=== PATIENT | male | born 1975 | race Caucasian/White ===

== ENCOUNTER 2017-07-15 21:37 | Inpatient (IN) | payer MEDICAID ==
[~2017-07-15] VITALS: Ht 177.8 cm; Wt 67.6 kg
[2017-07-15 21:47] VITALS: Ht 177.8 cm; Wt 67.6 kg
[2017-07-15 22:40] LABS: ALKALINE PHOSPHATASE 213 U/L (46-116); ALT/SGPT 53 U/L (16-63); AST/SGOT 37 U/L (15-37); BILIRUBIN TOTAL 0.55 mg/dL (0.20-1.00); CALCIUM 8.8 mg/dL (8.5-10.1); CARBON DIOXIDE 25.7 mmol/L (21-32); CREATININE SERUM 0.9 mg/dL (0.7-1.3); GFR1 > 60 mL/min; HDL CHOLESTEROL 55 mg/dL (40-60); POTASSIUM SERUM 4.4 mmol/L (3.5-5.1); URIC ACID 2.5 mg/dL (3.5-7.2)
[2017-07-15 22:42] LABS: ALBUMIN 3.1 g/dL (3.4-5.0); CHOLESTEROL 101 mg/dL (<200)
[2017-07-15 22:50] LABS: BASOPHIL % 1.4 % (0-2); PLATELET COUNT 300 x10^3mcL (130-400)
[2017-07-15 22:59] LABS: CHLORIDE SERUM 92 mmol/L (98-107); SODIUM SERUM 128 mmol/L (136-145)
[2017-07-15 23:02] LABS: GLUCOSE SERUM 532 mg/dL (74-106)
[2017-07-16] VITALS (7 sets, daily range): BP systolic 91–118; BP diastolic 57–80
[2017-07-16] MEDS ORDERED: ASPIR LOW81 MG PO (01:12)
[2017-07-16] MEDS ORDERED: ENALAPRIL MALEA20 MG PO (01:13)
[2017-07-16] MEDS ORDERED: LIPI20 PO (01:14)
[2017-07-16] MEDS ORDERED: METFORMIN HCL1000 MG PO (01:14)
[2017-07-16 01:24] LABS: MAGNESIUM 1.8 mg/dL (1.8-2.4)
[2017-07-16 01:35] LABS: FREE T4 1.73 ng/dL (0.76-1.46)
[2017-07-16 01:45] LABS: CHOLESTEROL/HDL RATIO 1.9; FREE THYROXINE INDEX 5.5 ug/dL (1.4-4.5); T4(THYROXINE) 16.3 ug/dL (4.7-13.3)
[2017-07-16 07:11] LABS: PLATELET COUNT 300 x10^3mcL (130-400); RED CELL DISTRIBUTION WIDTH 11.9 % (11.5-14.5)
[2017-07-16 07:35] LABS: CARBON DIOXIDE 22.5 mmol/L (21-32); CHLORIDE SERUM 96 mmol/L (98-107); CREATININE SERUM 0.8 mg/dL (0.7-1.3); GFR1 > 60 mL/min; GLUCOSE SERUM 356 mg/dL (74-106); MAGNESIUM 1.8 mg/dL (1.8-2.4); PHOSPHOROUS 2.6 mg/dL (2.5-4.9); POTASSIUM SERUM 3.8 mmol/L (3.5-5.1); SODIUM SERUM 131 mmol/L (136-145)
[2017-07-16 11:50] LABS: BAND NEUTROPHIL 0 % (0-10); BASOPHIL 0 % (0-2); MONOCYTE 3 % (0-7); SEGMENTED NEUTROPHILS 89 % (37-75)
[2017-07-16 11:51] LABS: PLATELET MORPHOLOGY PLATELETS INCREASED; rbc morphology (normal/abnorm) ABNORMAL (NORMAL)
[2017-07-16 13:49] LABS: T3 TOTAL 1.42 ng/mL
[2017-07-17 06:01] VITALS: BP 96/57
[2017-07-17 06:20] LABS: BASOPHIL % 0.3 % (0-2); PLATELET COUNT 278 x10^3mcL (130-400); RED CELL DISTRIBUTION WIDTH 12.6 % (11.5-14.5)
[2017-07-17 06:34] LABS: CALCIUM 8.1 mg/dL (8.5-10.1); CARBON DIOXIDE 26.3 mmol/L (21-32); CHLORIDE SERUM 103 mmol/L (98-107); CREATININE SERUM 0.6 mg/dL (0.7-1.3); GFR1 > 60 mL/min; GLUCOSE SERUM 179 mg/dL (74-106); MAGNESIUM 1.8 mg/dL (1.8-2.4); PHOSPHOROUS 3.1 mg/dL (2.5-4.9); POTASSIUM SERUM 3.6 mmol/L (3.5-5.1); SODIUM SERUM 138 mmol/L (136-145)
[2017-07-17 08:40] VITALS: BP 110/75
[2017-07-17] MEDS ORDERED: VENTOLIN H0.09 MG/A1 INH (08:52)
[2017-07-17] MEDS ORDERED: NEU100 PO (08:55)
[2017-07-17] MEDS ORDERED: SERTRALINE50 M1 PO (08:55)
[2017-07-17] MEDS ORDERED: COL100 PO (08:56)
[2017-07-17] MEDS ORDERED: BG FS (08:56)
[2017-07-17] MEDS ORDERED: LAC PO (08:57)
[2017-07-17] MEDS ORDERED: [UNRECOGNIZED DRUG - OTHER] MC (08:58)
[2017-07-17] MEDS ORDERED: APAP/HYDROCODON1 T13 PO (09:01)
[2017-07-17] MEDS ORDERED: HUMULIN R100 U/1 M1 SC (11:13)
[2017-07-17] MEDS ORDERED: [UNRECOGNIZED DRUG - OTHER] MC (11:14)
[2017-07-17] MEDS ORDERED: CYCLOBENZAPRINE5 MG PO (11:17)
[2017-07-17 11:54] VITALS: BP 110/75
[2017-07-17 11:56] LABS: microscopic required? NO
[2017-07-17 12:11] LABS: UA SPECIFIC GRAVITY >=1.030 (1.005-1.035); urine erythrocyte NEGATIVE (NEGATIVE)
[2017-07-17 12:35] LABS: AMPHETAMINE QUAL UR POSITIVE (NEG <=1000)
== END 2017-07-17 12:35 | disposition home or self-care (01) | DRG 720 ==
LOC: ED 21:37 → DU 07-16 00:32 → MU 07-16 00:32 → DU 07-16 01:26 → MU 07-16 09:45
PROVIDERS: Emergency Medicine; Family Medicine
DX: A41.9 Sepsis, unspecified organism (principal); J18.9 Pneumonia, unspecified organism; E44.0 Moderate protein-calorie malnutrition; E10.65 Type 1 diabetes mellitus with hyperglycemia; E87.1 Hypo-osmolality and hyponatremia; M51.34 Other intervertebral disc degeneration, thoracic region; I10 Essential (primary) hypertension; E05.90 Thyrotoxicosis, unspecified without thyrotoxic crisis or storm; E78.5 Hyperlipidemia, unspecified; F32.9 Major depressive disorder, single episode, unspecified; Z68.21 Body mass index [BMI] 21.0-21.9, adult; Z79.82 Long term (current) use of aspirin; Z79.84 Long term (current) use of oral hypoglycemic drugs; Z91.19 Patient's noncompliance with other medical treatment and regimen
CPT/HCPCS: 72072; 83880; 84439; 87804; 94150; G0480; J1815; J1956; J3010; J7030; J7620; Q0092; Q9967

== ENCOUNTER 2018-12-28 09:10 | Emergency (ER) | payer MEDICAID ==
[~2018-12-28] VITALS: Ht 177.8 cm; Wt 85.7 kg
[~2018-12-28 09:10] MED LIST: APAP/HYDROCODON1 T13 PO; ASPIR LOW81 MG PO; BG FS; COL100 PO; CYCLOBENZAPRINE5 MG PO; ENALAPRIL MALEA20 MG PO; HUMULIN R100 U/1 M1 SC; LAC PO; LIPI20 PO; METFORMIN HCL1000 MG PO; NEU100 PO; SERTRALINE50 M1 PO; VENTOLIN H0.09 MG/A1 INH; [UNRECOGNIZED DRUG - OTHER] MC; [UNRECOGNIZED DRUG - OTHER] MC
[2018-12-28 10:25] LABS: ALBUMIN 3.5 g/dL (3.4-5.0); ALKALINE PHOSPHATASE 125 U/L (46-116); ALT/SGPT 90 U/L (16-63); AST/SGOT 43 U/L (15-37); BILIRUBIN TOTAL 0.55 mg/dL (0.20-1.00); CARBON DIOXIDE 22.4 mmol/L (21-32); CHLORIDE SERUM 99 mmol/L (98-107); GFR1 > 60 mL/min; LIPASE 54 IU/L (73-393); SODIUM SERUM 134 mmol/L (136-145); TOTAL PROTEIN, SERUM 7.7 g/dL (6.4-8.2)
[2018-12-28 10:31] LABS: GLUCOSE SERUM 458 mg/dL (74-106)
[2018-12-28 10:40] LABS: BASOPHIL % 0.3 % (0-2); PLATELET COUNT 184 x10^3mcL (130-400); RED CELL DISTRIBUTION WIDTH 12.7 % (11.5-14.5)
[2018-12-28 11:11] VITALS: BP 112/86
== END 2018-12-28 11:35 | disposition home or self-care (01) ==
LOC: ED 09:10
PROVIDERS: Emergency Medicine
DX: E11.65 Type 2 diabetes mellitus with hyperglycemia (principal); K29.00 Acute gastritis without bleeding; Z88.0 Allergy status to penicillin
CPT/HCPCS: 82962; J2270; J2405; J7030; Q0092; Q0162

== ENCOUNTER 2019-02-05 10:23 | Emergency (ER) | payer SELFPAY ==
[~2019-02-05] VITALS: Ht 177.8 cm; Wt 83.9 kg
[2019-02-05 10:45] VITALS: BP 126/79; Ht 177.8 cm; Wt 83.9 kg
== END 2019-02-05 12:49 | disposition home or self-care (01) ==
LOC: ED 10:23
DX: R11.2 Nausea with vomiting, unspecified (principal); T39.1X5A Adverse effect of 4-Aminophenol derivatives, initial encounter; K02.9 Dental caries, unspecified; Y92.89 Other specified places as the place of occurrence of the external cause; E11.9 Type 2 diabetes mellitus without complications; Z88.0 Allergy status to penicillin
CPT/HCPCS: Q0162

== ENCOUNTER 2019-11-22 19:15 | Emergency (ER) | payer MEDICAID ==
[~2019-11-22] VITALS: Ht 180.3 cm; Wt 74.8 kg
[2019-11-22 19:22] VITALS: Ht 180.3 cm; Wt 74.8 kg
[2019-11-22 21:23] VITALS: BP 109/70
== END 2019-11-22 21:23 | disposition home or self-care (01) ==
LOC: ED 19:15
DX: T25.621A Corrosion of second degree of right foot, initial encounter (principal); T32.0 Corrosions involving less than 10% of body surface; E11.9 Type 2 diabetes mellitus without complications; Z88.0 Allergy status to penicillin; X08.8XXA Exposure to other specified smoke, fire and flames, initial encounter; Y93.H9 Activity, other involving exterior property and land maintenance, building and construction; Y92.89 Other specified places as the place of occurrence of the external cause; Y99.8 Other external cause status
CPT/HCPCS: 82962; 90715

== ENCOUNTER 2019-11-23 14:11 | Emergency (ER) | payer MEDICAID ==
[~2019-11-23] VITALS: Ht 177.8 cm; Wt 68.5 kg
[2019-11-23 14:37] VITALS: BP 123/69; Ht 177.8 cm; Wt 68.5 kg
== END 2019-11-23 15:56 | disposition home or self-care (01) ==
LOC: ED 14:11
DX: L98.9 Disorder of the skin and subcutaneous tissue, unspecified (principal); E11.9 Type 2 diabetes mellitus without complications
CPT/HCPCS: 82962